=== PATIENT | female | born 1935 | race Caucasian/White ===

== ENCOUNTER 2016-12-24 21:45 | Emergency (ER) | payer MEDICARE, MEDICAID ==
[~2016-12-24 21:45] MED LIST: ADVAIR DIS1 PUFF/DO1 IH; AGGRENOX 200/251 CAP PO; ATIVAN-DPS0.5 MG PO; ATROVENT HFA12.9 G1 IH; CEFTIN DPS500 MG PO; CRESTOR10 MG PO; DULCOLAX-DPS10 MG PR; DUONEB DPS3 ML IH; EXELON PATCH9.5 MG TD; FLAGYL-DPS500 MG PO; GLUCAGON1 MG/ML SQ; GLUTOSE 1537.5 GM PO; LASIX DPS80 MG PO; LEVAQUIN DPS750 MG PO; MAALOX DPS30 ML PO; MIRALAX DPS17 GM PO; NAMENDA5 MG PO; NITROSTAT0.4 MG SL; OCEAN NASAL MIS45 ML NS; OXY IR DPS5 MG PO; PEPCID DPS20 MG PO; POTASSIUM CHLO20 ME1 PO; PROVENTIL HFA6.7 GM IH; SEROQUEL DPS100 MG PO; SURFAK DPS240 MG PO; TEARS NATURAL D15 ML OU; TOPROL XL DPS25 MG PO; TYLENOL DPS325 MG PO; ZYLOPRIM-DPS100 MG PO
--- NOTE | 2016-12-31 18:55 | ER ---
ADMIT: 12/24/2016 RM/LOC: ER [facility] MR#: [id number] [address] [id number] [place] [address] Emergency Room Report SEX: F AGE: 81 : 1935 DATE: 12/24/2016 ADDENDUM: This patient comes to the ER because she feels bloated. She has been bloated this evening. According to her, she has been able to eat and drink normally today. She states the pain is not very much, but she feels like she is . PHYSICAL EXAMINATION: GENERAL: This is an 81-year-old, white female. ABDOMEN: Soft, nontender to palpation. She feels like it is distended. I do not know what she normally looks like, but I do not notice anything to of normal. LABORATORY DATA: CBC, BMP were normal. Her urinalysis did show 5 wbc's. DIAGNOSIS: Urinary tract infection. DISCUSSION: I wrote a prescription for Bactrim. We will have her follow up with her primary as needed. Please see my T-sheet. AMAIRANI Sandoval / Epi Parekh MD / derek JOB #: [id number] CC: Epi Parekh MD, Attending Physician Edgar Arriola MD, Family Physician
== END 2016-12-25 00:40 | disposition home or self-care (01) ==
LOC: ER 21:45
DX: N39.0 Urinary tract infection, site not specified (principal); I10 Essential (primary) hypertension; E11.9 Type 2 diabetes mellitus without complications; F03.90 Unspecified dementia, unspecified severity, without behavioral disturbance, psychotic disturbance, mood disturbance, and anxiety; Z86.73 Personal history of transient ischemic attack (TIA), and cerebral infarction without residual deficits; Z79.899 Other long term (current) drug therapy